=== PATIENT | female | born 1985 | race Caucasian/White ===

== ENCOUNTER 2021-06-16 21:38 | Emergency (ER) | payer SELFPAY ==
[~2021-06-16] VITALS: Ht 162.6 cm; Wt 70.0 kg
[2021-06-16 22:28] VITALS: BP 136/80
[2021-06-16] MEDS ORDERED: ACETAMINOPHEN 325MG TABLET PO ONE (22:30)
[2021-06-16 23:51] LABS: BASOPHILS % 0.2 % (0.0-2.0); EOSINOPHILS % 0.9 % (0.0-5.0); HEMATOCRIT. 37.2 % (36.0-48.0); HEMOGLOBIN. 12.5 g/dL (12.0-16.0); LYMPHOCYTES % 15.5 % (20.0-50.0); MEAN CORPUSCULAR HEMOGLOBIN 26.4 pg (28.0-32.0); MEAN CORPUSCULAR VOLUME 78.6 fL (81.0-99.0); MEAN PLATELET VOLUME 8.1 fl (7.4-10.4); MONOCYTES % 6.6 % (2.0-8.0); NEUTROPHILS % 76.8 % (40.0-76.0); PLATELET 275 x1000/uL (130-400); RED BLOOD CELL COUNT 4.73 mill/uL (4.2-5.4); RED CELL DISTRIBUTION WIDTH 13.9 % (11.6-14.6)
[2021-06-17 00:14] LABS: CHLORIDE 100 mEq/L (98-107)
[2021-06-17 00:39] LABS: B-HCG QUANTITATIVE 6990 mIU/mL (<3)
== END 2021-06-17 01:40 | disposition home or self-care (01) ==
LOC: ER 21:38
DX: O20.0 Threatened abortion (principal); Z3A.18 18 weeks gestation of pregnancy; E11.9 Type 2 diabetes mellitus without complications; Z98.890 Other specified postprocedural states
CPT/HCPCS: 36415; 76805; 80053; 84702; 85025; 86850; 86900; 99284